=== PATIENT | female | born 1985 ===

== ENCOUNTER 2017-11-29 01:08 | Inpatient (IN) | payer MEDICAID ==
[2017-11-29 02:06] VITALS: BMI 42.3
[2017-11-29] MEDS ORDERED: Penicillin G Potassium 5 MU in Sodium Chloride 0.9% 50 ML IVPB ONE (02:08)
[2017-11-29] MEDS ORDERED: Lactated Ringer's 1,000 ML IV SCH ×3 (02:15→14:00)
[2017-11-29] MEDS ORDERED: Penicillin G 5 Million Unit Vial IVPB ONE (02:40)
[2017-11-29] MEDS ORDERED: Oxytocin 30 UNITS in Sodium Chloride 0.9% 500 ML IV ONE ×2 (03:21→08:00)
[2017-11-29 04:18] LABS: BASO % 0.2 % (0.0-2.0); EOS # 0.1 K/uL (0.0-0.7); EOS % 0.5 % (0.0-4.0); HEMOGLOBIN 12.5 g/dL (12.0-16.0); LYMPH # 2.6 K/uL (1.0-4.3); LYMPH % 27.9 % (20.0-40.0); MEAN CELL VOLUME 88.2 fl (81.0-99.0); MEAN CORPUSCULAR HEMOGLOBIN 29.8 pg (27.0-31.0); MEAN CORPUSCULAR HGB CONC 33.8 g/dL (33.0-37.0); MEAN PLATELET VOLUME 8.6 fl (7.2-11.7); MONO # 0.7 K/uL (0.0-0.8); MONO % 7.3 % (0.0-10.0); NEUT # 6.1 K/uL (1.8-7.0); NEUT % 64.1 % (50.0-75.0); NRBC % 0.2 % (0.0-0.0); RBC 4.19 Mil/uL (3.80-5.20); RED CELL DISTRIBUTION WIDTH 13.8 % (11.5-14.5); WHITE BLOOD COUNT 9.5 K/uL (4.8-10.8)
[2017-11-29] MEDS ORDERED: Oxytocin 30 units/LR 500ML 30 U/500 ML BAG IV ONE (07:43)
[2017-11-29] MEDS ORDERED: Lidocaine 1% Inj (20ml) ONE (07:47)
--- NOTE | 2017-11-29 07:52 | OBADHP ---
Datetime: 11/29/2017 02:00 Admit Comment, IP Provider: 32 y/o F at 38 weeks GA, MALLORY 12/13/17, c/o SROM at 00:30 am. Pt explains a gush of clear fluid came out from vagina. No vaginal bleeding or CTX reported. FM reporte d. Pt denies fever, headache, visual disturbances, CP, SOB, N/V, urinary complaints or pruritus. NKDA Meds: PNV PNC clinic: [facility] PN Labs: GBS POSITIVE. PPD positive, CXR positive, pt cleared for delivery by chest clinic on 11/01 08/17. RPR neg, Rubella immune, HIV neg, HBsAG neg, Tdap given. OBHx: 1st PMHx: Obesity. PSHx: denied FHx: denied SHx: No tobacco, alcohol or rec drugs. A/P: 32 y/o F with IUP at 38 weeks GA with SROM, GBS positive. -Will admit to L_D. -Labor protocol initiated. -FHT monitoring. -Penicillin prophylaxis initiated. Case discussed with Dr Valnezuela, OB sharepoint application architect. Nelson PGY-1 Addendum: Examination Patient to Presentation. Patient Grossly Ruptured on Exam. GBS Positive. Plan to Admit Patient for Management of Labor and Delivery. Penicillin G for GBS Prophylaxis. We'll Consider Pitoc in Augmentation If Indicated. Both Maternal Well-Being and Well-Being Reassuring at This Time. Discussed Plan with Patient and All Patient Questions Answered. Pelvic Type - PN: Adequate Extremities - PN: Normal Abdomen - PN: Normal Back - PN: Normal Lungs - PN: Normal Heart - PN: Normal Thyroid - PN: Normal Neurologic - PN: Normal HEENT - PN: Normal General - PN: Normal Presentation-Admit: Vertex FHR - Baseline A Provider: 140 Membranes, Provider: Ruptured Comments, ACOG Physical Exam: Bedside US: cephalic presentation. Presence of fluid on bed sheet. Gestation - Est Wks by US: 38.0 IP Hx Assessment: The History has been Reviewed and is Current Vital Signs Provider: Reviewed IP Chief Complaint: Suspected ruptured membranes NICHD Variability Prov Fetus A: Moderate 6-25bpm NICHD Accel Fetus A IP Provider: [id number] FHR Category Provider Fetus A: Category I Dilatation, Provider: FT Effacement, Provider: Thick Station, Provider: high Genitourinary Exam: Normal EGA AdmitDate IP: 38.0 IP Adm Impression: Term, intrauterine IP Admit Plan: Admit to unit; Initiate labor protocol
[2017-11-29] MEDS ORDERED: Bupivacaine HCl 0.25% PF (10 ml) Inj ONE (12:25)
[2017-11-29] MEDS ORDERED: Fentanyl/Bupivacaine HCl 0 ML EPI ONE (12:25)
[2017-11-29] MEDS ORDERED: AMPicillin 1 GM in Sodium Chloride 0.9% 100 ML IVPB SCH (13:00)
[2017-11-29] MEDS ORDERED: Nalbuphine 20 mg/ml Inj (1 ml) IVP SCH (13:00)
[2017-11-29] MEDS ORDERED: Morphine 1 mg/ml preservative-free Inj(Duramorph) ONE (14:01)
[2017-11-29] MEDS ORDERED: ceFAZolin IV 1 gm in Dextrose 1 GM/50 ML BAG IVPB STA (14:12)
[2017-11-29] MEDS ORDERED: Sevoflurane - Inhalation Anesthetic Liq (250 ml) ONE (14:12)
[2017-11-29] MEDS ORDERED: ePHEDrine 50 mg/ml Inj ONE (14:14)
[2017-11-29] MEDS ORDERED: ceFAZolin IV 2 gm in Dextrose 2 GM/50 ML BAG IVPB ONE (14:20)
[2017-11-29] MEDS ORDERED: Succinylcholine 200 mg/10 ml Inj IV ONE (14:21)
[2017-11-29] MEDS ORDERED: Oxycodone/Acetaminophen 5/325 mg Tab PO PRN ×4 (14:52→17:43)
[2017-11-29] MEDS ORDERED: Benzocaine/Menthol SPRAY TOP PRN (14:52)
--- NOTE | 2017-11-29 17:03 | OBDS ---
DELIVERY PERSONNEL Delivery Doctor: Hannah Crow MD Passenger Screener: Dayan Goodwin RN Anesthesiologist: Yasmine Aguayo MD Resident: Dr Leiva MATERNAL INFORMATION Delivery Anesthesia: None Medications in Delivery: Pen G, Pitocin Estimated Blood Loss (ml): 200 Placenta Cultured: No Maternal Complications: None Provider Comments: of a viable female infant from cephalic presentation over intact perineum. I nfant's head delivered in a controlled manner. No nuchal cord was noted. Infant was bulb suctioned at the mother's stomach and was crying spontaneously. Cord was double calmped and cut by baby's aunt. Placenta was delivered intact and spontanously w/ gentle cord traction and uterine massage. 3 vess el cords were noted. IV fluids 500 ml plus Pitochin 30 units started immediately w/ delivery of place nta. Perineun was checked for laceration and non were noted. Female infants wt 6 lbs 10 oz and scores were 9/9. EBL 200 cc. LABOR SUMMARY EDC: 12/13/2017 00:00 No. Babies in Womb: 1 Attempted: No Labor Anesthesia: IV Sedation LABOR INFORMATION Reason for Induction: Not Applicable Onset of Labor: 11/29/2017 00:30 Complete Dilatation: 11/29/2017 14:30 Oxytocin: Augmentation Group B Beta Strep: Positive (Annotations: Data stored by N on behalf of user) Antibiotics # of Doses: 3 Steroids Given: None Reason Steroids Not Administered: Not Applicable MEMBRANES Membranes Rupture Method: Spontaneous Rupture of Membranes: 11/29/2017 00:30 Length of Rupture (hrs): 14.20 Amniotic Fluid Color: Clear Amniotic Fluid Amount: Large Amniotic Fluid Odor: Normal STAGES OF LABOR Stage 1 hrs: 14 Stage 1 min: 0 Stage 2 hrs: 0 Stage 2 min: 12 Stage 3 hrs: 0 Stage 3 min: 8 Total Time in Labor hrs: 14 Total Time in Labor min: 20 VAGINAL DELIVERY Episiotomy: None Laceration Extension: N/A Laceration Type: None Laceration Repair: Not Applicable Initial Vag Sponge Count: 5 Final Vag Sponge Count: 5 Initial Vag Sharps Count: 0 Final Vag Sharps Count: 0 Sponge Count Correct: Yes Sharps Count Correct: Yes BABY A INFORMATION Delivery Date/Time: 11/29/2017 14:42 Method of Delivery: Vaginal Born in Route : No : N/A Forceps: N/A Vacuum Extraction: N/A Shoulder Dystocia : No SHOULDER DYSTOCIA BABY A Infant Delivery Date/Time: 11/29/2017 14:42 PRESENTATION/POSITION BABY A Presentation: Cephalic PLACENTA INFORMATION BABY A Placenta Delivery Time : 11/29/2017 14:50 Placenta Method of Delivery: Spontaneous Placenta Status: Delivered SCORES BABY A Heart Rate 1 min: >100 bpm Resp Effort 1 min: Good Cry Reflex Irritability 1 min: Cough or Sneeze or Pulls Away Muscle Tone 1 min: Active Motion Color 1 min: Body [place], Extremities Blue Resuscitation Effort 1 min: N/A SCORE 1 MIN: 9 Heart Rate 5 min: >100 bpm Resp Effort 5 min: Good Cry Reflex Irritability 5 min: Cough or Sneeze or Pulls Away Muscle Tone 5 min: Active Motion Color 5 min: Body [place], Extremities Blue Resuscitation Effort 5 min: N/A SCORE 5 MIN: 9 INFORMATION BABY A Gestational Age at Delivery: 38.0 Gestational Status: Term Infant Outcome : Liveborn Condition : Stable Sex: Female IDENTIFICATION/MEDS BABY A ID Band Number: [id number] WEIGHT/LENGTH BABY A Birthweight (gms): 3015 Infant Weight (lb): 6 Weight (oz): 10 CORD INFORMATION BABY A No. Cord Vessels: 3 Nuchal Cord : N/A Cord Blood Taken: Yes Infant Suction: Mouth
[2017-11-30 07:21] LABS: HEMOGLOBIN 11.3 g/dL (12.0-16.0); MEAN CELL VOLUME 89.2 fl (81.0-99.0); MEAN CORPUSCULAR HEMOGLOBIN 29.1 pg (27.0-31.0); MEAN CORPUSCULAR HGB CONC 32.6 g/dL (33.0-37.0); RBC 3.88 Mil/uL (3.80-5.20); RED CELL DISTRIBUTION WIDTH 13.9 % (11.5-14.5); WHITE BLOOD COUNT 14.2 K/uL (4.8-10.8)
--- NOTE | 2017-11-30 09:03 | OBPPN ---
Datetime: 11/30/2017 07:33 PP Pain Prov: Within normal limits PP Nausea Prov: Denies PP Flatus Prov: Yes PP BM Prov: No PP Breasts Prov: Normal PP Heart Prov: Normal PP Lungs Prov: Normal PP Abdomen/Uterus Prov: Normal PP Lochia Prov: Normal PP Vulva/Perineum Prov: Normal PP CVA Tenderness Prov: Not Done PP Extremities Prov: Normal PP C/S Incision Prov: Not Applicable PP Progress Prov: Normal PP Impression Prov: Normal progression PP Plan Prov: Continue present management PP Progress Note Prov: S: 32 YO s/p NVD on 11/29/17. PPD #1. Seen and examined at bedside, moth er present by bedside. No acute events overnight. Pt reports mild pelvic pain controlled with pain me ds. Pt is ambulating to the bathroom with dizziness. Breast/Bottle feeding without difficulty. Tolera ting PO diet well. Lochia is improved from yesterday. Voiding freely with no blood noted, -Bowel move ment, passing gas perrectum. Denies fever/chills, diarrhea, nausea/vomiting, CP/SOB , Lightheadedness , calf pain. O: GEN: A_O, Resting comfortably in bed, NAD HEENT: White sclera, pink conjunctiva, oral mucosa moist. Lungs: CTA B/L, no wheezing ,rhonci, or rales Cardio: RRR, S1,S2 NL ABD: ND, +BS, firm fundus @ umbilical level. EXT: No edema, calves nontender NEURO: AAOx3 Assessment/Plan: 32 YO s/p NVD on 11/29/17. Gave to baby girl. Pt remains afebrile, terrell erating pain with medication, doing well on PPD 1. Continue regular diet OOB with caution Percocet for mod/severe pain and Ibuprofen for mild pain. Colace and Simethicone for constipation Encourage and ambulation Anna Cid, PGY I The patient was seen with the resident I agree with the note Vital Signs Provider PP: Reviewed; Within Normal Limits
[2017-11-30] MEDS: Benzocaine/Menthol SPRAY TOP PRN (12:28)
--- NOTE | 2017-12-01 07:55 | OBPPN ---
Datetime: 12/01/2017 06:02 PP Pain Prov: Within normal limits PP Nausea Prov: Denies PP Flatus Prov: Yes PP BM Prov: No PP Heart Prov: Normal PP Lungs Prov: Normal PP Abdomen/Uterus Prov: Normal PP Lochia Prov: Normal PP CVA Tenderness Prov: Normal PP Extremities Prov: Normal PP C/S Incision Prov: Not Applicable PP Progress Prov: Normal PP Impression Prov: Normal progression PP Plan Prov: Discharge PP Progress Note Prov: S: 32 y/o now on PPD 2. Pt had a on 11/29/17 with no complications. Pt seen and examined at bedside. No acute events overnight. Pt reports mild pelvic pain which is con trolled with provided analgesics. Pt tolerating PO, ambulating and voiding with NO complications. Pt passing gasses but no bowel movement yet. Pt and supplementing with formula. Lochia has improved and now less than menses. Pt denies fever, headache, visual disturbances, CP, SOB, N/V or p ruritus. O: post- H/H was 11.3/34.6. PE Gen: Pt resting comfortably on bed, AAOx3, not in acute distress. Lungs: CTA B/L. No W/R/R. CV: S1 S2 present, regular rhythm. Abd: BS+, soft, fundus of uterus firm and below umbilicus. Ext: no edema, neg Jhon's sign, non-tender calves. NEURO/PSYCH: no grossly focal deficit, preserved affect and mood. A/P: 32 y/o F on PPD 2, recovering well from . -Will discharge pt home today. -Encourage . Ambulate with caution, no heavy lifting, nothing per vagina for 6 weeks. -Continue PNV 1 tab PO daily. -Ibuprofen 600mg PO PRN for moderate pain. -If excessive bleeding, intolerable pain or fever despite medications, go to ER. -Pt instructed to set appointment within 4-6 weeks for post- evaluation. Jason Damon PGY-1 OB Hospitalist Addendum: Pt seen and examined by me. Agree w/ above. PPD 2 s/p , breast and b ottle feeding. Discharge home today. (ES) IP PP Procedures: None Vital Signs Provider PP: Reviewed
--- NOTE | 2017-12-01 07:55 | OBDCSUM ---
Datetime: 12/01/2017 06:05 Discharged to, Provider: Home Follow up at, Provider: [facility] Disch Instr Activity: Normal activity Disch Instr Diet: Regular Discharge Instructions, Provider: Routine instructions given Discharge Diagnosis, Provider: Term Delivered Discharge Time: 12/01/2017 11:00 Follow up in weeks, Provider: 4-6 weeks Disch Referrals: None Contraception discussed, Prov: No Disch Activity Restrictions: No lifting; Minimize stair-climbing; No sexual activity; Nothing in vag brian - [place], tampons, douche Discharge Comment, Provider: -Encourage . Ambulate with caution, no heavy lifting, noth ing per vagina for 6 weeks. -Continue PNV 1 tab PO daily. -Ibuprofen 600mg PO PRN for moderate pain. -If excessive bleeding, intolerable pain or fever despite medications, go to ER. -Pt instructed to set appointment within 4-6 weeks for post- evaluation.
[2017-12-01] MEDS: Benzocaine/Menthol SPRAY TOP PRN (08:31)
[2017-12-01 19:08] VITALS: BP 105/64; PULSE 80; RESP 20; TEMP 98.3; O2SAT 98
== END 2017-12-01 14:25 | disposition home or self-care (01) | DRG 373 ==
LOC: H.EROB2 01:08 → H.EROB 01:22 → H.L&D 02:06 → H.EROB2 02:14 → H.OB/GYN 17:31
PROVIDERS: ADMIT Obstetrics & Gynecology; ATTEND Obstetrics & Gynecology
PROC: 10E0XZZ Delivery of Products of Conception, External Approach (ICD-10-PCS; principal; 2017-11-29)
PROC: 4A1HXCZ Monitoring of Products of Conception, Cardiac Rate, External Approach (ICD-10-PCS; 2017-11-29)
DX: O99.214 Obesity complicating childbirth (principal); Z68.41 Body mass index [BMI] 40.0-44.9, adult; E66.9 Obesity, unspecified; O99.824 Streptococcus B carrier state complicating childbirth; Z37.0 Single live birth; Z3A.38 38 weeks gestation of pregnancy